=== PATIENT | male | born 1985 | race Caucasian/White ===

== ENCOUNTER 2021-06-30 22:12 | Emergency (ER) | payer OTHER ==
[~2021-06-30 22:12] MED LIST: CLEOCIN300 MG PO; VOLTAREN **OUT50 MG PO
[2021-07-01] MEDS ORDERED: CYCLOBENZAPRINE10 MG PO (00:55)
== END 2021-07-01 00:56 | disposition home or self-care (01) ==
LOC: FER 22:12
DX: M54.2 Cervicalgia (principal); G89.29 Other chronic pain; F17.290 Nicotine dependence, other tobacco product, uncomplicated; Z88.0 Allergy status to penicillin; Z88.1 Allergy status to other antibiotic agents; Z28.310 Unvaccinated for COVID-19
CPT/HCPCS: 72125